=== PATIENT | female | born 1950 | race Caucasian/White ===

== ENCOUNTER 2020-03-23 08:50 | Outpatient (CLI) | payer BC, SELFPAY ==
--- NOTE | ~2020-03-23 | XR_ITS ---
XR hip LT min 2V DATE: 03/23/2020 09:40 INDICATION: Left hip pain. No injury. TECHNIQUE: AP, lateral, crosstable lateral views of the left hip COMPARISON: None FINDINGS: No fracture or dislocation, avascular necrosis or bone destruction of the left hip. The le ft hip joint space is well preserved. The pubic symphysis and sacroiliac joints appear normal. Surgical clips overlie the right lower quadrant and the left pelvis. IMPRESSION: Negative left hip Reviewed, dictated and finalized at location B. IMPRESSION: Negative left hip
--- NOTE | ~2020-03-23 | MM_ITS ---
EXAMINATION: MM screening [facility] BI w karina HISTORY: Screening mammogram TECHNIQUE: Craniocaudal and mediolateral oblique 3-D tomosynthesis images were obtained and synthetic 2-D images were generated. CAD analysis was submitted and interpreted. COMPARISON: 07/15/2018, 07/07/2017 BREAST PARENCHYMAL COMPOSITION: There are scattered areas of fibroglandular density. FINDINGS: There is no evidence of suspicious mass, calcification, or architectural distortion to sugg est malignancy in either breast. There has been no suspicious interval change. IMPRESSION: 1. No mammographic evidence of malignancy. 2. Recommend routine screening mammography in one year. BI-RADS Category 1: Negative Reviewed, dictated and finalized at location A.
--- NOTE | ~2020-03-23 | DEXA_ITS ---
Bone Density Report Name: Macarena Gomez Age: 70 Sex: Female Ethnicity: White Date of : 1950 Indication: osteopenia; height loss; prior fracture; cancer; seizure disorder; hysterectomy; Referring Provider: BATOOL BECK Study: Bone densitometry was performed. Exam Date: March 23, 2020 Accession number: [id number] Bone Density: Region BMD T-score Z-score Classification AP Spine (L1-L4) 0.901 -1.3 0.8 Osteopenia Femoral Neck (Left) 0.659 -1.7 0.1 Osteopenia Total Hip (Left) 0.861 -0.7 0.9 Normal Total Hip Bilateral Avg 0.854 -0.8 0.8 Normal Femoral Neck (Right) 0.669 -1.6 0.2 Osteopenia Total Hip (Right) 0.846 -0.8 0.8 Normal World Health Organization criteria for BMD impression classify patients as: Normal (T-score at or above -1.0), Osteopenia (T-score between -1.0 and -2.5), or Osteoporosis (T-score at or below -2.5). 10-year Fracture Risk(1): Major Osteoporotic Fracture 16% Hip Fracture 2.5% Reported Risk Factors: [place] (), Neck BMD=0.659, BMI=35.7, previous fracture (1) FRAX(R) Version 3.08. Fracture probability calculated for an untreated patient. Fracture probability may be lower if the patient has received treatment. Previous Exams: Region Exam Age BMD T-score BMD Change BMD Change Date g/cm2 vs Baseline vs Previous AP Spine(L1-L4) 03/23/2020 70 0.901 -1.3 0.026(3.0%)* 0.026(3.0%)* 07/07/2017 67 0.875 -1.6 Total Hip(Left) 03/23/2020 70 0.861 -0.7 -0.024(-2.7%) -0.024(-2.7%) 07/07/2017 67 0.885 -0.5 Total Hip(Right) 03/23/2020 70 0.846 -0.8 -0.024(-2.7%) -0.024(-2.7%) 07/07/2017 67 0.869 -0.6 *Denotes significance at 95% confidence level, LSC for AP Spine = 0.022 g/cm2, LSC for Total Hip = 0.027 g/cm2 Clinical Information Provided by Patient: Has had a low trauma fracture Has used the following medications: Vitamin D, Calcium Has the following medical conditions: Any Seizure Disorders, Cancer, Hysterectomy Patient maximum height was 65.5 Menopause Age: 56 No regular weight bearing exercise Does not regularly consume dairy products Onset of menses at age 12 Number of children 1 Impression: The patient has low bone mass, based on the Left Femoral Neck T-score. The patient has an estimated ten-year risk of hip fracture of 2.5% and an estimated ten-year risk of major fracture of 16%, based on the WHO FRAX algorithm. The patient has risk factors, including: previous fracture. No
== END 2020-03-23 08:51 | disposition home or self-care (01) ==
PROVIDERS: PCP Internal Medicine; Referring Provider Internal Medicine; Visit Provider Obstetrics & Gynecology Gynecology
DX: Z12.31 Encounter for screening mammogram for malignant neoplasm of breast (principal); M25.552 Pain in left hip; M85.88 Other specified disorders of bone density and structure, other site; M85.852 Other specified disorders of bone density and structure, left thigh; M85.851 Other specified disorders of bone density and structure, right thigh
CPT/HCPCS: 73502; 77063; 77067; 77080

== ENCOUNTER 2020-09-05 11:16 | Outpatient (CLI) | payer BC, SELFPAY ==
--- NOTE | 2020-09-08 12:50 | WPDHOLTEREM ---
Holter/Event Monitor Holter/Event Monitor Date of procedure: 09/05/20 Procedure Type: 48 hour holter monitor Indications: Palpitations Conclusion: 1. 48 hour holter monitor on 09/05/20. 2. Predominant rhythm is sinus rhythm. HR range 57-121 bpm; average HR 81 bpm. 3. There are 116 premature supraventricular complexes and 7 supraventricular couplets. There are 8 atrial tachycardia, fastest at 194 bpm and longest lasting 12 beats. 4. There are 3 premature ventricular complexes and 2 ventricular couplets. No ventricular tachycardia. 5. No sinoatrial or atrioventricular blocks. No significant pauses greater than 2 seconds. 6. Patient had symptoms of shortness of breath, lightheadedness, chest discomfort which demonstrate sinus rhythm, HR range 81-105 bpm.
== END 2020-09-05 11:17 | disposition home or self-care (01) ==
LOC: ANHCARD 11:16
PROVIDERS: PCP Internal Medicine; Visit Provider Internal Medicine
DX: R00.2 Palpitations (principal)
CPT/HCPCS: 93225; 93226

== ENCOUNTER 2020-09-19 06:40 | Outpatient (CLI) | payer BC, SELFPAY ==
--- NOTE | ~2020-09-19 | NM_ITS ---
EXAMINATION: NM stress w perf spect multi DATE: 09/19/2020 10:12 INDICATION: Chest pain TECHNIQUE: Rest images were obtained following intravenous administration of 10.2 mCi Tc99m tetrofosm in (Myoview). The patient performed an exercise activity. At peak exercise, 31.77 mCi Tc99m tetrofosm in (Myoview) was administered intravenously, and stress images were obtained supine position. Additio nal prone post stress images were obtained. Data was reconstructed into short axis and horizontal and vertical long axis SPECT images. Gated SPECT images were also obtained. COMPARISON: None. FINDINGS: There is normal left ventricular perfusion without definite evidence of reversible or fixed perfusion abnormality to suggest ischemia or infarction. There is normal left ventricular chamber size, wall m otion and ejection fraction. Left ventricular ejection fraction measures >70%. IMPRESSION: 1. Normal myocardial perfusion at rest and during stress. 2. Left ventricular ejection fraction measuring >70%. Reviewed, dictated and finalized at location A.
--- NOTE | 2020-09-19 06:43 | EST_ITS ---
Patient Info Name: Macarena Gomez Age: 70 years : 1950 Gender: Female Ht: 65 in Wt: 212 lbs BSA: 2.14 m2 Exam Date: 09/19/2020 8:48 AM Exam Location: [facility] Stress Patient Status: Outpatient Admit Date: 09/19/2020 Staff Ordering Physician: Bud Moreau DO Attending Provider: Bud Moreau DO Exercise Technologist: No Lo RDCS Exercise Physician: Jose Arthur DO Exam Type: CA stress test treadmill w NM Study Info Indications R07.9 - Chest pain, unspecified A nuclear stress test was performed. Summary 1. 1. Equivocal Howie exercise stress test for ischemic ST changes by ECG criteria. 2. 2. Reduced functional capacity, achieving 5 METs of workload. 3. 3. Baseline hypertension with hypertensive response to exercise. 4. 4. Appropriate HR response to exercise. 5. 5. Appropriate HR recovery at 1 minute post exercise. 6. 6. Nuclear scan to follow and will be reported separately. Please correlate with it. 7. 7. Patient informed of the above results. Protocol: Howie Stress ECG Details Stage: REST Duration (min): 8 min : 53 sec Speed (mph): 0.0 Grade (%): 0 HR (bpm): 78 SBP (mmHg): 168 DBP (mmHg): 68 METS: --- Stage: REST Duration (min): 12 min : 40 sec Speed (mph): 0.0 Grade (%): 0 HR (bpm): 73 SBP (mmHg): 168 DBP (mmHg): 68 METS: --- Stage: STAGE 1 Duration (min): 1 min : 0 sec Speed (mph): 1.7 Grade (%): 10 HR (bpm): 108 SBP (mmHg): 168 DBP (mmHg): 68 METS: --- Stage: STAGE 1 Duration (min): 2 min : 0 sec Speed (mph): 1.7 Grade (%): 10 HR (bpm): 125 SBP (mmHg): 168 DBP (mmHg): 68 METS: --- Stage: STAGE 1 Duration (min): 3 min : 0 sec Speed (mph): 1.7 Grade (%): 10 HR (bpm): 140 SBP (mmHg): 173 DBP (mmHg): 53 METS: --- Stage: STAGE 2 Duration (min): 0 min : 30 sec Speed (mph): 2.5 Grade (%): 12 HR (bpm): 147 SBP (mmHg): 173 DBP (mmHg): 53 METS: --- Stage: RECOVERY Duration (min): 0 min : 29 sec Speed (mph): 1.5 Grade (%): 0 HR (bpm): 146 SBP (mmHg): 173 DBP (mmHg): 53 METS: --- Stage: RECOVERY Duration (min): 1 min : 29 sec Speed (mph): 0.0 Grade (%): 0 HR (bpm): 125 SBP (mmHg): 173 DBP (mmHg): 53 METS: --- Stage: RECOVERY Duration (min): 2 min : 29 sec Speed (mph): 0.0 Grade (%): 0 HR (bpm): 105 SBP (mmHg): 209 DBP (mmHg): 82 METS: --- Stage: RECOVERY Duration (min): 3 min : 29 sec Speed (mph): 0.0 Grade (%): 0 HR (bpm): 91 SBP (mmHg): 220 DBP (mmHg): 73 METS: --- Stage: RECOVERY Duration (min): 4 min : 29 sec Speed (mph): 0.0 Grade (%): 0 HR (bpm): 84 SBP (mmHg): 220 DBP (mmHg): 73 METS: --- Stage: RECOVERY Duration (min): 5 min : 29 sec Speed (mph): 0.0 Grade (%): 0 HR (bpm): 87 SBP (mmHg): 190 DBP (mmHg): 67
--- NOTE | 2020-09-19 06:43 | ECHO_ITS ---
Patient Info Name: Macarena Gomez Age: 70 years : 1950 Gender: Female Ht: 65 in Wt: 212 lbs BSA: 2.14 m2 HR: 72 bpm BP: 150 / 71 mmHg Technical Quality: Good Exam Date: 09/19/2020 7:10 AM Exam Location: [facility] Pulmonary Patient Status: Outpatient Admit Date: 09/19/2020 Staff Ordering Physician: Bud Moreau DO Art Department Head: No Lo RDCS Attending Provider: Bud Moreau DO Referring Physician: Lizzeth REINA; Exam Type: CA echo doppler color flow Study Info Indications R00.2 - Palpitations Complete two-dimensional, color flow and Doppler transthoracic echocardiogram is performed. Summary 1. Complete two-dimensional, color flow and Doppler transthoracic echocardiogram is performed. 2. Left ventricular chamber dimension is normal. 3. Left ventricular systolic function is normal, estimated at 60-65%. 4. The left ventricular diastolic function is grade I diastolic dysfunction. 5. E/e' 11 is mildly elevated. 6. Global longitudinal strain is normal at -17.8%. 7. There is mild tricuspid valve regurgitation. 8. No pulmonary hypertension, estimated pulmonary arterial systolic pressure is 35 mmHg. Left Ventricle E/e' 11 is mildly elevated. Global longitudinal strain is normal at -17.8%. Left ventricular chamber dimension is normal. Left ventricular systolic function is normal, estimated at 60-65%. The left ventricular diastolic function is grade I diastolic dysfunction. Right Ventricle Right ventricular chamber dimension is normal. Right ventricular systolic function is normal. Left Atria Left atrial chamber dimension is normal. Right Atria Right atrial chamber dimension is normal. Aortic Valve The aortic valve is trileaflet. There is no aortic valve stenosis. There is no aortic valve regurgitation. Pulmonic Valve There is no pulmonic regurgitation. Mitral Valve There is no mitral valve stenosis. There is no mitral valve regurgitation. Tricuspid Valve There is mild tricuspid valve regurgitation. No pulmonary hypertension, estimated pulmonary arterial systolic pressure is 35 mmHg. Pericardium/Pleural There is no pericardial effusion. Inferior Vena Cava Normal inferior vena cava with >50% collapse upon inspiration consistent with normal right atrial pressure, 5 mmHg. Aorta The aortic root size at the sinus of Valsalva is normal. Left Ventricular Outflow Tract Name Value Normal LVOT 2D LVOT Diameter 2.0 cm LVOT Doppler LVOT Peak Gradient 5 mmHg LVOT Mean Gradient 2 mmHg LVOT VTI 23 cm LVOT VTI/AV VTI Ratio 0.8 LVOT Stroke Volume 75 ml LVOT CO 5.1 l/min LVOT CI 2.4 l/min/m2 Pulmonic Valve Name Value Normal RVOT Doppler
== END 2020-09-19 06:41 | disposition home or self-care (01) ==
PROVIDERS: PCP Internal Medicine; Visit Provider Internal Medicine
DX: R07.89 Other chest pain (principal); R00.2 Palpitations; I50.89 Other heart failure; I36.1 Nonrheumatic tricuspid (valve) insufficiency
CPT/HCPCS: 78452; 93017; 93306; A9502

== ENCOUNTER 2021-05-14 08:30 | Outpatient (CLI) | payer BC, SELFPAY ==
--- NOTE | ~2021-05-14 | MM_ITS ---
EXAMINATION: MM screening [facility] BI w karina HISTORY: Screening mammogram TECHNIQUE: Craniocaudal and mediolateral oblique 3-D tomosynthesis images were obtained and synthetic 2-D images were generated. CAD analysis was submitted and interpreted. COMPARISON: 03/23/2020, 07/15/2018 BREAST PARENCHYMAL COMPOSITION: There are scattered areas of fibroglandular density. FINDINGS: There is no evidence of suspicious mass, calcification, or architectural distortion to sugg est malignancy in either breast. There has been no suspicious interval change. IMPRESSION: 1. No mammographic evidence of malignancy. 2. Recommend routine screening mammography in one year. BI-RADS Category 1: Negative Reviewed, dictated and finalized at location A. IED BEHAVIOR SPECIALIST
== END 2021-05-14 08:31 | disposition home or self-care (01) ==
LOC: ANHIMG 08:32
PROVIDERS: PCP Internal Medicine; Visit Provider Obstetrics & Gynecology Gynecology
DX: Z12.31 Encounter for screening mammogram for malignant neoplasm of breast (principal)
CPT/HCPCS: 77063; 77067

== ENCOUNTER 2022-10-30 13:45 | Outpatient (CLI) | payer MEDICARE, SELFPAY ==
--- NOTE | ~2022-10-30 | XR_ITS ---
Clinical Indication: Cough PA and lateral views of the chest: Comparison: 06/12/2018 Findings: The lungs are clear, without evidence of focal consolidation or pleural effusion. Cardiome diastinal silhouette is within normal limits. Bones and soft tissues are unremarkable. Impression: Normal chest. Reviewed, dictated and finalized at [facility]. Impression: Normal chest.
== END 2022-10-30 13:46 | disposition home or self-care (01) ==
LOC: ANHIMG 13:48
PROVIDERS: PCP Internal Medicine; Visit Provider Internal Medicine
DX: R05.9 Cough, unspecified (principal)
CPT/HCPCS: 71046

== ENCOUNTER 2023-02-19 14:10 | Outpatient (CLI) | payer MEDICARE, SELFPAY ==
--- NOTE | ~2023-02-19 | MM_ITS ---
EXAMINATION: MM screening [facility] BI w karina HISTORY: Screening mammogram TECHNIQUE: Craniocaudal and mediolateral oblique 3-D tomosynthesis images were obtained and synthetic 2-D images were generated. CAD analysis was submitted and interpreted. COMPARISON: 05/14/2021, 03/23/2020, 07/15/2018 BREAST PARENCHYMAL COMPOSITION: There are scattered areas of fibroglandular density. FINDINGS: No suspicious mass, calcification, or architectural distortion are identified in either lo ast to suggest malignancy. There has been no suspicious interval change. IMPRESSION: 1. No mammographic evidence of malignancy. 2. Recommend routine screening mammography in one year. BI-RADS Category 1: Negative Reviewed, dictated and finalized at location A.
== END 2023-02-19 14:11 | disposition home or self-care (01) ==
LOC: ANHIMG 14:12
PROVIDERS: PCP Internal Medicine; Visit Provider Obstetrics & Gynecology Gynecology
DX: Z12.31 Encounter for screening mammogram for malignant neoplasm of breast (principal)
CPT/HCPCS: 77063; 77067

== ENCOUNTER 2023-04-30 08:43 | Outpatient (CLI) | payer MEDICARE, SELFPAY ==
--- NOTE | ~2023-04-30 | DEXA_ITS ---
Bone Density Report Name: SHANNON HOLLAND Age: 73 Sex: Female Ethnicity: White Date of : 1950 Indication: postmenopausal; screening for osteoporosis; height loss; hysterectomy; Referring Provider: BATOOL BECK Study: Bone densitometry was performed. Exam Date: April 30, 2023 Accession number: [id number] Bone Density: Region BMD T-score Z-score Classification AP Spine(L1-L4) 0.892 -1.4 0.9 Osteopenia Femoral Neck (Left) 0.633 -1.9 0.1 Osteopenia Total Hip (Left) 0.836 -0.9 0.9 Normal Femoral Neck (Right) 0.664 -1.7 0.4 Osteopenia Total Hip (Right) 0.813 -1.1 0.7 Osteopenia Total Hip Mean 0.824 -1.0 0.8 Normal World Health Organization criteria for BMD impression classify patients as: Normal (T-score at or above -1.0), Osteopenia (T-score between -1.0 and -2.5), or Osteoporosis (T-score at or below -2.5). 10-year Fracture Risk(1): Major Osteoporotic Fracture 12% Hip Fracture 2.7% Reported Risk Factors: [place] (), Neck BMD=0.633, BMI=33.1 (1) FRAX(R) Version 3.08. Fracture probability calculated for an untreated patient. Fracture probability may be lower if the patient has received treatment. Clinical Information Provided by Patient: Has used the following medications: Vitamin D Has the following medical conditions: Hysterectomy Patient maximum height was 65 Menopause Age: 54 Does not regularly consume dairy products Onset of menses at age 12 Number of children 1 Impression: The patient has low bone mass, based on the Left Femoral Neck T-score. The patient has an estimated ten-year risk of hip fracture of 2.7% and an estimated ten-year risk of major fracture of 12%, based on the WHO FRAX algorithm. Discussion: BONE DENSITY IS LOW AT ONE OR MORE SKELETAL SITES. This patient's lowest T-score is low at one or more skeletal sites. It meets the World Health Organization's (WHO) criteria for ?low bone mass? (T-score between -1.0 and -2.5). The patient's 10-year risk of fracture as calculated by FRAX is less than the threshold where pharmacological therapy is recommended by the National Osteoporosis Foundation (NOF). However, all treatment decisions require clinical judgment and consideration of individual patient factors, including patient preferences, comorbidities, previous drug use, risk factors not captured in the FRAX model (e.g., frailty, falls, vitamin D deficiency, increased bone turnover, interval significant decline in bone density) and possible under or overestimation of fracture risk by FRAX. The patient should follow a healthful lifestyle (good nutrition with adequate calcium and vitamin D, and appropriate weight-bearing exercise). Follow-Up: Consider repeating this study in 2 to 3 years to reassess this patient's status, or sooner if there is mikal
== END 2023-04-30 08:44 | disposition home or self-care (01) ==
LOC: ANHIMG 08:45
PROVIDERS: PCP Internal Medicine; Visit Provider Obstetrics & Gynecology Gynecology
DX: Z78.0 Asymptomatic menopausal state (principal); M85.89 Other specified disorders of bone density and structure, multiple sites
CPT/HCPCS: 77080